=== PATIENT | female | born 1965 | race Caucasian/White ===

== ENCOUNTER → 2024-03-27 | Outpatient (CLI) | payer OTHER ==
[~2024-03-27] MED LIST: AUGMENTIN 875 M1 TAB PO; CIPRO500 MG PO; CLARITIN10 MG PO; MOTRIN800 MG PO; PROTONIX40 MG PO
== END | disposition home or self-care (01) ==
LOC: MAMMO 01:28
PROVIDERS: ATTEND Internal Medicine
DX: Z12.31 Encounter for screening mammogram for malignant neoplasm of breast (principal); N64.89 Other specified disorders of breast